=== PATIENT | male | born 1980 | race Caucasian/White ===

== ENCOUNTER 2019-10-07 18:46 | Emergency (ER) | payer SELFPAY ==
[2019-10-07 18:50] VITALS: BP 150/103; PULSE 100; RESP 18; TEMP 36.6; O2SAT 100
--- NOTE | 2019-10-07 19:43 | ED.DENTAL ---
HPI - Dental/Oral General Chief complaint: Dental/Oral Stated complaint: dental pain Time Seen by Provider: 10/07/19 19:39 Source: RN notes reviewed History of Present Illness HPI Narrative: Patient presents emergency department from home for dental pain. Patient states symptoms began 2 days ago. States he has a history of a carious right incisor that became more tender 2 days ago he states he is noted mild erythema and swelling of the gum but denies any drainage he denies any fevers or chills sore throat difficulty swallowing shortness of breath or any other symptoms. States he has had tooth infections before and can take amoxicillin but cannot tolerate penicillin Related Data Allergies Allergy/AdvReac Type Severity Reaction Status Date / Time Penicillins AdvReac Mild Nausea and Verified 10/07/19 18:53 Vomiting Review of Systems Review of Systems: Narrative: Gen.: Denies fevers or chills HEENT: See HPI Respiratory: Denies shortness of breath Neuro: Denies headache Skin: Denies rash Endo: Denies DM PMFSH Past Medical History Medical History (Updated 10/07/19 @ 19:45 by Ángel Rowe DO) Patient denies significant medical history Social History Social History (Updated 10/07/19 @ 19:44 by Ángel Rowe DO) Tobacco type: e-cigarettes/vaping Gender identity (if verbalized by the patient): Male Exam Narrative: Exam Narrative: APPEARANCE: No acute distress, nontoxic, resting in bed HEENT: Normocephalic, atraumatic, TMs clear bilaterally, nares patent, oral mucosa moist, airway patent, tooth #7 is carious down to the gumline tender to palpation mild erythema and swelling of the gum no fluctuance and no drainage Neck: Supple, nontender RESPIRATORY: No respiratory distress MUSCULOSKELETAl: Moves all extremities. NEURO: Awake and alert. Following commands, speech normal, no focal deficits SKIN:: Warm, dry. Normal Color PSYCHIATRIC: Normal affect/mood Course Course Emergency Course: Discussed with patient results of workup and diagnosis. Discussed need for follow-up with primary care, proper use of medication, and reasons to return to the emergency department. Patient understands and agrees to current treatment plan Vital Signs Vital signs: Vital Signs Temperature 97.9 F 10/07/19 18:50 Pulse Rate 100 10/07/19 18:50 Respiratory Rate 18 10/07/19 18:50 Blood Pressure 150/103 H 10/07/19 18:50 Pulse Oximetry 100 10/07/19 18:50 Temperature 97.9 F 10/07/19 18:50 Pulse Rate 100 10/07/19 18:50 Respiratory Rate 18 10/07/19 18:50 Blood Pressure 150/103 H 10/07/19 18:50 Pulse Oximetry 100 10/07/19 18:50 Discharge Plan Discharge Clinical Impression: Dental abscess Patient Disposition: Home, Self-Care Condition: Stable Instructions: Antibiotic Form, Dental Abscess (ED) Additional Instructions: Return for increasing dental pain fever or any other symptoms of concern Prescriptions: New amoxicillin 500 mg capsule 500 mg PO Q8H Qty: 30 RF: 0 ibuprofen [IBU] 600 mg tablet 600 mg PO Q6H PRN (Reason: pain) Qty: 20 RF: 0 Follow-up/Referrals: [facility] [place] [Outside] - 2 Days [facility] [Outside] - 2 Days PHYSICIAN,STRATEGIC DEBRIEFING SPECIALIST [Primary Care Provider] - Stand Alone Forms: Work/School Release IP Time of Disposition: 19:45
[2019-10-07] MEDS: AMOXICILLIN 500 MG CAPSULE PO (20:01)
[2019-10-07 20:05] VITALS: BP 168/109; PULSE 111; RESP 16; TEMP 36.6; O2SAT 95
== END 2019-10-07 20:06 | disposition home or self-care (01) ==
PROVIDERS: Emergency Provider Emergency Medicine
DX: K04.7 Periapical abscess without sinus (principal); F17.290 Nicotine dependence, other tobacco product, uncomplicated
CPT/HCPCS: 99283; A9270

== ENCOUNTER 2022-11-10 12:24 | Emergency (ER) | payer SELFPAY ==
[2022-11-10 12:29] VITALS: BP 146/113; PULSE 87; RESP 16; TEMP 36.1; O2SAT 100
--- NOTE | 2022-11-10 13:04 | ED.GENADULT ---
HPI - General Adult General Chief complaint: Dental/Oral Stated complaint: tooth pain Time Seen by Provider: 11/10/22 12:48 Source: patient Mode of arrival: ambulatory Limitations: no limitations History of Present Illness HPI narrative: This is a 42-year-old male who presents to the ED with chief complaint of left lower dental pain ongoing for the past 3 days. Patient reports that he feels he may have an abscess. He has had similar pains in the past and got better with antibiotics which is why he is here today. Denies any fevers, chills, nausea, vomiting. Denies any troubles with swallowing or sore throat. Denies jaw swelling. Related Data Allergies Allergy/AdvReac Type Severity Reaction Status Date / Time Penicillins AdvReac Mild Nausea and Verified 11/10/22 12:53 Vomiting PMFSH Past Medical History Medical History (Updated 11/10/22 @ 13:06 by Telly Ac PA-C) Patient denies significant medical history Social History Social History (Updated 10/07/19 @ 19:44 by Ángel Rowe DO) Tobacco type: e-cigarettes/vaping Gender identity (if verbalized by the patient): Male Exam Narrative: GENERAL: Well-appearing, well-nourished, and in no acute distress. HEAD: Normocephalic, atraumatic. EYES: PERRLA and EOMI. ENT: Nares clear, no rhinorrhea or epistaxis. Mucous membranes moist. Oropharynx without tonsillar hypertrophy exudate or other lesions. Several caries noted throughout the mouth, cracked teeth on the lower left. Floor the mouth is intact. No mandibular swelling. Uvula midline. No palpable or identifiable abscess. NECK: Supple. No adenopathy or masses. CHEST: No respiratory distress. Clear to auscultation. No wheezes rales or rhonchi HEART: Regular rate and rhythm. No murmur heard. Normal peripheral pulses. ABDOMEN: Soft, nontender, nondistended, normal active bowel sounds. MSK: Normal range of motion. No edema. SKIN: Warm, dry, no rash. NEURO: Alert and oriented x3. No focal deficits. PSYCH: Normal mood and affect. Course Vital Signs Vital signs: Vital Signs Temperature 97.0 F L 11/10/22 12:29 Pulse Rate 87 11/10/22 12:29 Respiratory Rate 16 11/10/22 12:29 Blood Pressure 146/113 H 11/10/22 12:29 Pulse Oximetry 100 11/10/22 12:29 Oxygen Delivery Room Air 11/10/22 12:29 Temperature 97.0 F L 11/10/22 12:29 Pulse Rate 88 11/10/22 13:17 Respiratory Rate 14 11/10/22 13:17 Blood Pressure 144/85 H 11/10/22 13:17 Pulse Oximetry 100 11/10/22 13:17 Oxygen Delivery Room Air 11/10/22 12:29 Medical Decision Making MDM Narrative Medical decision making narrative: This is a 42-year-old male who presents to the ED with chief complaint of left lower dental pain onset x3 days. Vitals normal. Exam is benign. Does not reveal any palpable or identifiable abscess. He will be given prescription for antibiotics and supportive measures discussed at home. Return precautions given. He is stable for discharge. He states that he has a dentist that he will be able to follow-up with soon. He is understanding and agreeable with plan for discharge at this time. Vital Signs Vital Signs: Vital Signs Temperature 97.0 F L 11/10/22 12:29 Pulse Rate 87 11/10/22 12:29 Respiratory Rate 16 11/10/22 12:29 Blood Pressure 146/113 H 11/10/22 12:29 Pulse Oximetry 100 11/10/22 12:29 Oxygen Delivery Room Air 11/10/22 12:29 Temperature 97.0 F L 11/10/22 12:29 Pulse Rate 88 11/10/22 13:17 Respiratory Rate 14 11/10/22 13:17 Blood Pressure 144/85 H 11/10/22 13:17 Pulse Oximetry 100 11/10/22 13:17 Oxygen Delivery Room Air 11/10/22 12:29 Discharge Plan Discharge Clinical Impression: Dental caries, Toothache Patient Disposition: Home, Self-Care Condition: Stable Instructions: Antibiotic Form Additional Instructions: Exam is reassuring today. Consistent with dental infection. Please take Augmentin prescription th
[2022-11-10 13:17] VITALS: BP 144/85; PULSE 88; RESP 14; O2SAT 100
== END 2022-11-10 13:19 | disposition home or self-care (01) ==
LOC: ANHED 13:11
PROVIDERS: Emergency Provider Physician Assistant
DX: K02.9 Dental caries, unspecified (principal); F17.290 Nicotine dependence, other tobacco product, uncomplicated
CPT/HCPCS: 99283

== ENCOUNTER 2023-05-24 16:55 | Emergency (ER) | payer SELFPAY ==
[2023-05-24 17:10] VITALS: BP 187/127; PULSE 109; RESP 16; TEMP 36.8; O2SAT 98
[2023-05-24] MEDS: AMOXICILLIN/CLAVULANATE K 875-125 MG TAB 1 TABLET PO (17:33)
--- NOTE | 2023-05-24 17:35 | ED.DENTAL ---
HPI - Dental/Oral General Chief complaint: Dental/Oral Stated complaint: tooth pain Time Seen by Provider: 05/24/23 17:18 Source: patient Mode of arrival: ambulatory Limitations: no limitations History of Present Illness HPI Narrative: Patient is a 42 y/o male who presented ED with report of left lower dental pain. Patient reports having several fractured teeth. He reports having pain throughout his left lower posterior molars, teeth number 18 and 19, for the last 1 week. He has been taking ibuprofen and Tylenol for the pain. He is wanting antibiotics. He does not currently have a dentist. Denies fevers, difficulty breathing or swallowing, vomiting, drainage from the tooth. Related Data Allergies Allergy/AdvReac Type Severity Reaction Status Date / Time Penicillins AdvReac Mild Nausea and Verified 05/24/23 17:14 Vomiting Review of Systems Review of Systems: CONSTITUTIONAL: Denies fever, chills, or sweats. ENT: See HPI. RESPIRATORY: Denies dyspnea. GASTROINTESTINAL: Denies vomiting. All systems reviewed & are unremarkable except as noted in HPI and below PMFSH Past Medical History Medical History Patient denies significant medical history Social History Social History Tobacco type: e-cigarettes/vaping Gender identity (if verbalized by the patient): Male Exam Narrative: GENERAL: Well appearing, obese with BMI of 32.6, non-toxic, in no acute distress. HEAD: Normocephalic, atraumatic. ENT: Diffuse dental decay, scattered dental caries. Several teeth are eroded down to the gumline. TTP along gumline surrounding teeth # 19/18. No focal abscess or fluctuance. No drainage. No stridor, trismus, wheezing. RESPIRATORY: Airway patent, respirations nonlabored. CARDIOVASCULAR: Regular rate and rhythm. MUSCULOSKELETAL: Moves all extremities. SKIN: Warm, dry, normal color. NEURO: A&O X3. Speech clear. No ataxic movements. PSYCHIATRIC: Appropriate mood and affect. Normal interaction. Course Vital Signs Vital signs: Vital Signs Temperature 98.2 F 05/24/23 17:10 Pulse Rate 109 H 05/24/23 17:10 Respiratory Rate 16 05/24/23 17:10 Blood Pressure 187/127 H 05/24/23 17:10 Pulse Oximetry 98 05/24/23 17:10 Temperature 98.2 F 05/24/23 17:10 Pulse Rate 109 H 05/24/23 17:10 Respiratory Rate 16 05/24/23 17:10 Blood Pressure 187/127 H 05/24/23 17:10 Pulse Oximetry 98 05/24/23 17:10 MDM - Dental/Oral MDM Narrative Medical decision making narrative: Patient's pain is consistent with dental caries. There are no focal signs of space-occupying abscess. The patient is controlling secretions well without signs of airway compromise. Patient is felt reasonable for outpatient follow-up with dental evaluation. Will prescribe Augmentin for likely dental infection. Patient was offered pain medication however he refused. He will continue his Tylenol and ibuprofen. Advised close follow-up with dentist. Given return precautions. Discharged in stable condition. Medical Records Attestation: I reviewed the patient's medical records. Discharge Plan Discharge Clinical Impression: Dental caries, Toothache Patient Disposition: Home, Self-Care Condition: Stable Instructions: Antibiotic Form, Dental Abscess (ED), Toothache (ED) Additional Instructions: Take antibiotics as prescribed. Continue Tylenol and Ibuprofen as needed for pain. Follow up with dentist as soon as possible. Return to an ED if you experience worsening or severe pain, difficulty breathing or swallowing, unable to keep down food or drink, or any other symptoms of concern. Prescriptions: New amoxicillin-pot clavulanate 875-125 mg tablet 1 tablet PO Q12H 7 Days Qty: 14 0RF No Action amoxicillin 500 mg capsule 500 mg PO Q8H Qty: 30 0RF ibuprofen [IBU] 600 mg tablet 600 mg P
[2023-05-24 17:40] VITALS: BP 199/136; PULSE 107; RESP 18; O2SAT 98
== END 2023-05-24 17:45 | disposition home or self-care (01) ==
LOC: ANHED 17:36
PROVIDERS: Emergency Provider Physician Assistant
DX: K02.9 Dental caries, unspecified (principal); F17.290 Nicotine dependence, other tobacco product, uncomplicated
CPT/HCPCS: 99283; A9270